=== PATIENT | male | born 1995 ===

== ENCOUNTER 2024-09-25 15:11 | Emergency (ER) | payer SELFPAY ==
--- NOTE | 2024-09-25 15:16 | ED.GENADULT ---
HPI - General Adult General Date Seen: 09/25/24 Chief complaint: Skin/Abscess/Foreign Body Stated complaint: infected fingernail Time Seen by Provider: 09/25/24 15:16 History of Present Illness HPI narrative: 29-year-old male presenting to the emergency department today for evaluation of an infection around his fingernail. He is generally healthy with no history of diabetes or immunosuppression. He is up-to-date on tetanus. He injured his fingernail last week or perhaps 10 years ago when he was playing football with his family. He describes tearing a little bit of the corner of the fingernail on his right hand middle finger. He toward the hand now off. Few days after that he started developing pain and swelling involving the cuticle on the ulnar side of his left fingernail. He has had progressive increase in pain and swelling on that ulnar side of the fingernail plate and also now some swelling spreading proximally. His finger tip is becoming more tender, more sensitive, and more swollen. It has been bleeding a little bit and draining a small amount of fluid but still is swollen. He has no history of similar infections in the past. He has been able to move his finger normally. He does not think it is broken. Related Data Previous Rx's ?Medication ?Instructions ?Recorded cephalexin 500 mg capsule 500 mg PO TID #21 caps 09/25/24 Allergies Allergy/AdvReac Type Severity Reaction Status Date / Time No Known Drug Allergies Allergy Verified 09/25/24 15:18 Exam Narrative: Exam Narrative: Constitutional: Appears well-developed and well-nourished. Active. Non-toxic appearing. Very polite. HENT: Head: Atraumatic. No signs of injury. Nose: No nasal discharge. Mouth/Throat: Mucous membranes are moist. . No trismus. No swelling. Eyes: Conjunctivae normal and EOM are normal. Pupils are equal, round, and reactive to light. Right eye exhibits no discharge. Left eye exhibits no discharge. No icterus. Neck: Normal range of motion. Neck supple. No adenopathy. No stridor. Cardiovascular: Normal rate and regular rhythm. No active bleeding. Normal distal cap refill. Pulmonary/Chest: Effort normal. No stridor. No respiratory distress. No retractions. Musculoskeletal: Normal except for his right hand 3rd digit (middle finger). On the right hand 3rd digit there is swelling and erythema of the skin adjacent to his fingernail plate on the ulnar border and the ulnar half of the proximal skin. There is a palpable fluctuance there is suggestive of paronychia. The visual nail plate looks normal. No evidence for swelling in the finger pad to suggest a felon or herpetic dell. No blisters. No redness or swelling spreading proximally up the digit. Normal flexion and extension of the D IP, PIP, MCP. Intact ulnar and radial digital nerve sensory function. Neurological: Alert. Normal strength. No cranial nerve deficit or sensory deficit. Coordination normal. GCS eye subscore is 4. GCS verbal subscore is 5. GCS motor subscore is 6. Skin: Skin is warm. No rash noted. Const: Vital Signs, click to edit/add: Vital Signs - 24 hr 09/25/24 15:19 Temperature 98.1 F Pulse Rate [Pulse Oximeter] 61 Respiratory Rate 18 Blood Pressure [Ri ght Upper Arm] 96/59 L Pulse Oximetry 99 Oxygen Delivery Me thod Room Air Course Course ED Course: Procedure: Digital block Indication: Need to drain paronychia Verbal consent from patient Sterile prep using Betadine. Using a 30 gauge 1 in needle we infiltrated a total of 3 mL of 0.25% bupivacaine from a dorsal approach on the ulnar and radial sides of the patient's right hand 3rd digit. Good anesthesia was achieved. Aspiration confirmed no intravascular injection. No complications noted. Procedure: Incision and drainage of paronychia Indication: Paronychia of right hand 3rd digit Verbal consent from patient Sterile prep using Betadine After digital block and good anesthesia and sterile prep with Betadine we used an 11 blade scalpel to create an incision adjacent to the ulnar border of the nail plate into the paronychia. From this we did achieve drainage of 1-2 mL of brownish/greenish purulent material and 1-2 mL of blood. Subsequently the swollen. Acute was visibly deflated and appeared to be drained. No complications noted. Vital Signs Vital signs: Initial Vital Signs Temperature 98.1 F 09/25/24 15:19 Temperature Source Temporal Artery Scan 09/25/24 15:19 Pulse Rate 61 09/25/24 15:19 Respiratory Rate 18 09/25/24 15:19 Blood Pressure 96/59 L 09/25/24 15:19 Blood Pressure Mean 71 09/25/24 15:19 Pulse Oximetry 99 09/25/24 15:19 Oxygen Delivery Method Room Air 09/25/24 15:19 Vital Signs Temperature 98.1 F 09/25/24 15:19 Pulse Rate 61 09/25/24 15:19 Respiratory Rate 18 09/25/24 15:19 Blood Pressure 96/59 L 09/25/24 15:19 Pulse Oximetry 99 09/25/24 15:19 Oxygen Delivery Method Room Air 09/25/24 15:19 Temperature 98.1 F 09/25/24 15:19 Pulse Rate 61 09/25/24 15:19 Respiratory Rate 18 09/25/24 15:19 Blood Pressure 96/59 L 09/25/24 15:19 Pulse Oximetry 99 09/25/24 15:19 Oxygen Delivery Method Room Air 09/25/24 15:19 Medications Administered Medications: Discontinued Medications Generic Name Dose Route Start Last Admin Trade Name Freq PRN Reason Stop Dose Admin Bupivacaine HCl 30 ml 09/25/24 15:28 09/25/24 15:32 Bupivacaine 0.25% 30 Ml INJECTION 09/25/24 15:29 30 ml ONCE ONE Administration Medical Decision Making MDM Narrative Medical decision making narrative: This pleasant generally healthy 29-year-old male presenting to the ER today with swelling and pain involving his right hand 3rd digit. Clinical evaluation reveals paronychia. He has good range of motion in the finger and no bony tenderness on the volar surface. At this point low likelihood for associated fracture. No evidence for felon or herpetic dell. No evidence for tenosynovitis or other infections spreading proximally up the finger or in hand. Paronychia was incised and drained as noted above. Patient is safe for outpatient management with antibiotics. Prescription for cephalexin sent to his pharmacy at [facility]. Reviewed wound care, precautions for that return to the ER, need for follow-up. Questions answered patient is comfortable plan for discharge. Discharge Plan Discharge Clinical Impression: Paronychia Patient Disposition: Home, Self-Care Condition: Stable Instructions: Paronychia (ED) Additional Instructions: As we discussed, please change the bandage once per day (or more often if needed if it gets dirty or bloody). Monitor your finger carefully. If you notice increasing swelling, redness or swelling moving up her finger, or if you have any other concerns, please come back to the emergency department right away. If you are not completely improved within 4-5 days, please come back to the ER or see your doctor for recheck. Please be careful because your finger will be numb for the next 6-12 hours. Please start on the antibiotics today to help treat the infection in your finger tip. Prescriptions: New cephalexin 500 mg capsule 500 mg PO TID Qty: 21 0RF Stand Alone Forms: [employer] Info Instructions
[2024-09-25 15:19] VITALS: BP 96/59; PULSE 61; RESP 18; TEMP 36.7; O2SAT 99; BMI 22.0
[2024-09-25] MEDS: BUPIVACAINE 0.25% 30 ML INJECTION (15:32)
--- OUTSIDE RECORDS SUMMARY | 2024-09-25 16:07 | XMS_ITS | Clinical Summary ---
Author Organization [facility] Address [address] [place] [id number] Care Team Providers Care Underwriting Operations Manager Name Role Phone Pcp, No Primary Care Provider Unavailabl e Allergies No known active allergies Medications No known medications Active Problems Problem Noted Date Diagnosed Date Dysthymia 07/14/2020 Adjustment disorder with depressed mood 07/15/19 21 Polysubstance abuse 07/14/2020 Overview (07/14/2020): alcohol, marijuana, cocaine Immunizations Immunization Administration Dates Next Due Influenza Virus, Unspecified 03/04/2011 Influenza, IIV3 (Age >=3 years) 03/03/2015 Meningococcal Vaccine (Menactra) 04/04/2015,08/2009 Tdap 06/06/2019,02/16/2010 Varicella Vaccine 02/16/2010 Social History Tobacco Use Types Packs/Day Years Used Date Smoking Tobacco: Every Day Cigarettes 0.5 7 Smokeless Tobacco: Never Tobacco Cessation:Ready to Q uit: No; Counseling Given: Yes Alcohol Use Standard Drinks/Week Comments Yes 42 (1 standard drink = 0.6 oz pu re alcohol) Whiskey, cognac, vodka Sex and Gender Information Value Date Recorded Sex Assigned at Not on file Legal Sex Male 7:24 AM [employer]ILRO[employer] Gender Identity Not on file Sexual Orientation Not on file Obstetrics History Last Filed Vital Signs Vital Sign Reading Time Taken Comments Blood Pressure 129/59 01/11/2023 1:14 PM CDT Pulse 59 01/11/2023 1:14 PM CDT Temperature 37.3 C (99.1 F) 01/11/2023 1:14 PM CDT Respiratory Rate 18 01/11/2023 1:14 PM CDT Oxygen Saturation 98% 01/11/2023 1:14 PM CDT Inhaled Oxygen Concentration - - Weight 65.8 kg (145 lb) 01/11/2023 1:14 PM CDT Height 162.6 cm (5' 4) 07/13/2020 8:57 PM [employer]ILROAD [employer] Body Mass Index 24.89 07/13/2020 8:57 PM [employer]ILROAD [employer] Plan of Treatment Health Maintenance Due Date Last Done Comments HIV for age 15-65 2012 BMI (ht and wt on same day) for age 18+ 08/27/2015 Hepatitis C screening for age 18-79 08/27/2015 Pneumococcal series for age 6-49 (1 of 2 - PCV) 2016 Depression screening for age 12+ 07/13/2021 07/13/19 21 COVID-19 vaccine series ( season) 2024 Influenza Vaccine (Season Ended) 2025 03/03/20 15, 03/04/2011 Tetanus booster 06/06/2029 06/06/2019, 02/16/2010 Tdap Completed 06/06/2019, 02/16/2010 Insurance [facility] Advance Directives * Full Code (Latest Code Status on File) Date Activated Date Inactivated Comments 07/13/2020 11:55 PM 07/14/2020 5:39 PM Question Answer Comments Code Status Discussion: Not Discussed Care Teams Underwriting Operations Manager Relationship Specialty Start Date End Date Pcp, No . PCP - General 06/06/19
== END 2024-09-25 16:19 | disposition home or self-care (01) ==
PROVIDERS: Emergency Provider Emergency Medicine
DX: L03.011 Cellulitis of right finger (principal)
CPT/HCPCS: 10060; 99282; 99283; J0665